=== PATIENT | male | born 1965 | race Caucasian/White ===

== ENCOUNTER 2016-04-06 19:45 | Inpatient (IN) | payer OTHER ==
[~2016-04-06] VITALS: Ht 185.4 cm; Wt 127.9 kg
--- NOTE | ~2016-04-06 | EKG ---
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
[2016-04-06 20:00] VITALS: BP 136/83
[2016-04-06] MEDS ORDERED: ELIQUIS2.5 MG PO (20:03)
[2016-04-06] MEDS ORDERED: LEVOTHYROXIN0.125 M1 PO (20:03)
[2016-04-06 20:04] LABS: ABSOLUTE NEUTROPHILS 5.1 thou/uL (1.4-8.2); BASOPHILS 0.7 % (0.0-2.0); EOSINOPHILS 1.1 % (0.0-3.0); HEMATOCRIT 43.9 % (42.0-52.0); HEMOGLOBIN 14.6 gm/dL (14.0-18.0); LYMPHOCYTES 26.9 % (24.0-44.0); MCH 29.3 pg (26.0-34.0); MCHC 33.2 % (28.0-37.0); MCV 88.4 fL (80.0-100.0); MONOCYTES 6.2 % (1.0-8.0); PLATELET COUNT 253 thou/uL (150-400); POLYS 65.1 % (36.0-66.0); RBC 4.96 mil/uL (4.50-6.00); RDW 14.2 % (10.5-14.5); WBC 7.8 thou/uL (4.0-11.0)
[2016-04-06 20:05] VITALS: BP 135/91
[2016-04-06 20:07] LABS: MANUAL DIFF NO
[2016-04-06 20:08] LABS: ANION GAP 10 mmol/L (7-16); BUN 11 mg/dL (7-18); CALCIUM 9.1 mg/dL (8.5-10.1); CHLORIDE 106 mmol/L (98-107); CO2 28 mmol/L (21-32); CREATININE 1.2 mg/dL (0.6-1.3); GLUCOSE 94 mg/dL (70-99); POTASSIUM 3.7 mmol/L (3.5-5.1); SODIUM 144 mmol/L (136-145)
[2016-04-06 20:12] LABS: INR 1.1; PROTIME 11.2 Seconds (9.3-11.4)
[2016-04-06 20:20] LABS: ALKALINE PHOSPHATASE 93 U/L (46-116); SGOT 17 U/L (15-37); SGPT 25 U/L (30-65); TOTAL BILIRUBIN 0.5 mg/dL (<0.1-1.0); TOTAL PROTEIN 7.5 g/dL (6.4-8.2); TROPONIN-I < 0.04 ng/mL (<0.04-0.07)
[2016-04-06 22:15] VITALS: BP 122/78
[2016-04-07 04:21] VITALS: BP 139/76
[2016-04-07 08:40] VITALS: BP 123/80
[2016-04-07 12:50] VITALS: BP 131/77
[2016-04-07 13:59] LABS: CHOLESTEROL 154 mg/dL (<200); HDL CHOLESTEROL 46 mg/dL (>40); LDL CHOLESTEROL 89 mg/dL (<100); TC:HDL 3.3 Ratio (Not establshd); TRIGLYCERIDE 97 mg/dL (<150); VLDL 19 mg/dL (<40)
[2016-04-07 17:42] VITALS: BP 117/77
[2016-04-07 20:00] VITALS: BP 111/71
[2016-04-08 04:22] VITALS: BP 120/87
[2016-04-08 08:00] VITALS: BP 114/76
[2016-04-08 12:00] VITALS: BP 116/86
[2016-04-08] MEDS ORDERED: FOLTX TABLET1 EAC1 PO (12:30)
[2016-04-08 13:01] VITALS: BP 116/86
[2016-04-09 13:14] LABS: ANTITHROMBIN III 111 % (75-135); DIL. RUSSELL VIPER VENOM 57.9 sec (0.0-44.0)
== END 2016-04-08 14:25 | disposition home or self-care (01) | DRG 642 ==
LOC: ER 19:45 → 4W 21:41 → EROBS 21:41 → 4W 22:15
PROVIDERS: Emergency Medicine; Hospitalist
DX: E72.11 Homocystinuria (principal); I69.354 Hemiplegia and hemiparesis following cerebral infarction affecting left non-dominant side; E03.9 Hypothyroidism, unspecified; G43.909 Migraine, unspecified, not intractable, without status migrainosus; Z86.711 Personal history of pulmonary embolism; Z79.01 Long term (current) use of anticoagulants; Z86.718 Personal history of other venous thrombosis and embolism
CPT/HCPCS: 10045